=== PATIENT | male | born 1950 | race Caucasian/White ===

== ENCOUNTER 2025-08-30 10:46 | Day surgery (SDC) | payer MEDICARE, SELFPAY ==
[2025-08-30] VITALS (19 sets, daily range): BP systolic 111–168; BP diastolic 66–94; PULSE 60–89; RESP 14–20; TEMP 36.5–37.3; O2SAT 92–98; BMI 32.5
--- NOTE | 2025-08-30 10:15 | CRLHL7_ITS ---
For Patients: As a result of the Cures Act, medical imaging exams and procedure reports are released immediately into your electronic medical record. You may view this report before your referring provider. If you have questions, please contact your health care provider. Indication: TOTAL RIGHT HIP ARTHROPLASTY Technique: AP hip centered pelvis and lateral view right hip Findings/Impression: Hardware from a right total hip arthroplasty is in satisfactory position. Bone alignment is normal. No sign of acute fracture. Postop changes are within normal limits. Dictated by Aden Nolen MD @ 08/30/2025 3:36:20 PM (Electronically Signed)
[2025-08-30] MEDS: SODIUM CHLORIDE 0.9 % (FLUSH) 10 ML SYRINGE IVF ×2 (11:35→15:29)
[2025-08-30] MEDS: LACTATED RINGERS 1000 ML 1,000 ML 100 ML IV ×2 (11:35→13:45)
[2025-08-30] MEDS: OXYCODONE (CR) 10 MG TAB.ER.12H PO (11:48)
[2025-08-30] MEDS: ACETAMINOPHEN 500 MG TABLET 1000 MG PO ×2 (11:48→17:51)
[2025-08-30] MEDS: MIDAZOLAM HCL 1 MG/ML inj IVP (11:50)
--- NOTE | 2025-08-30 11:50 | SUR.PREOP ---
TIME?OUT:?1145 PT/RN/MDA?VERIFICATION?OF?SURGICAL?SITE,?PROCEDURE,?AND?CONSENT OBTAINED?PRIOR?TO?INVASIVE?PROCEDURE.
--- NOTE | 2025-08-30 12:11 | W.PM.H&PU ---
History & Physical Update History & Physical Update H&P Reviewed and patient assessed: No changes noted
--- NOTE | 2025-08-30 12:12 | CRLHL7_ITS ---
For Patients: As a result of the Cures Act, medical imaging exams and procedure reports are released immediately into your electronic medical record. You may view this report before your referring provider. If you have questions, please contact your health care provider. Indication: Hip replacement surgery Technique: AP hip fluoroscopic image. Fluoroscopy time 40.5 seconds. Findings/Impression: Hardware from a right total hip arthroplasty is in satisfactory position. Dictated by Aden Nolen MD @ 08/31/2025 8:45:40 AM (Electronically Signed)
[2025-08-30] MEDS: TRANEXAMIC ACID 100 MG/ML INJ 1000 MG IV (12:25)
--- NOTE | 2025-08-30 13:31 | P.NB_ITS ---
Nerve Block Nerve Block Time Seen by Provider: :45 Date Seen: 08/30/25 Type of block requested by surgeon for post-operative analgesia: CECILIA/LFCN Side: right Time out performed: Yes Verification of patient name: Yes Verification of date of : Yes Site marking: site marked Name of person performing procedure: Travis Continuous monitoring Was continuous monitoring of O2 sat, B/P, cardiac catheterization technician, recorded every 15 minutes?: Yes Procedure Checklist: sterile prep, needles and gloves Ultrasound guided. Images saved: Yes Medications given in 5ml increments after negative aspiration: Ropivicaine %: 0.5 mL: 30 Needle gauge: 20 Precedex (mcg): 25 Patient tolerated procedure well: Yes Additional comments: Needle noted below psoas tendon needle noted adjacent to LFCN Block Charges Block Charge (with Pro Fee): Other Periph Nerve Block Use of Ultrasound Machine for Block: Yes- US Guidance/pain block
--- NOTE | 2025-08-30 13:32 | P.ANES_ITS ---
Anesthesia Charges Start Date/Time Anesthesia Start Date: 08/30/25 Anesthesia Start Time: 12:00 Stop Date/Time Anesthesia Stop Date: 08/30/25 Anesthesia Stop Time: 14:39 Summary Extremes of Age - Over 70 or under 1: MDA Coding CPT Codes CPT Codes: ANESTH HIP ARTHROPLASTY - 93277 ([id number]) P3 - PATIENT W/SEVERE SYS DISEASE, QK - COUNTERINTELLIGENCE AGENT 2-4 CNCRNT ANES PROC, QX - GRIDDLE ATTENDANT SVC W/ MD MED DIRECTION Additional Codes: Summary - Extremes of Age - Over 70 or under 1: MDA ([id number])
--- NOTE | 2025-08-30 13:32 | W.ANESCHARGE ---
Anesthesia Charges Start Date/Time Anesthesia Start Date: 08/30/25 Anesthesia Start Time: 12:00 Stop Date/Time Anesthesia Stop Date: 08/30/25 Anesthesia Stop Time: 14:39 Summary Extremes of Age - Over 70 or under 1: MDA Coding CPT Codes CPT Codes: ANESTH HIP ARTHROPLASTY - 40354 ([id number]) P3 - PATIENT W/SEVERE SYS DISEASE, QK - CAPTION WRITER 2-4 CNCRNT ANES PROC, QX - REGULATORY MANAGER SVC W/ MD MED DIRECTION Additional Codes: Summary - Extremes of Age - Over 70 or under 1: MDA ([id number])
--- NOTE | 2025-08-30 13:43 | P.ORPRC_ITS ---
Procedure Note Date of procedure: 08/30/25 Procedure: PREOPERATIVE DIAGNOSIS: 1. Right hip osteoarthritis, severe, primary POSTOPERATIVE DIAGNOSIS: 1. Right hip osteoarthritis, severe, primary PROCEDURE: 1. Right total hip arthroplasty-anterior approach 2. Intraoperative fluoroscopy interpreted by Devante Sarabia M.D. for intraoperative evaluation of implant positioning as well as leg length and offset evaluation. Fluoroscopy time was 40.5 seconds. SURGEON: Devante Sarabia MD. TECHNICAL ADMINISTRATIVE ASSISTANT: Librado Tabares PA-C; ANNETTE Tyson - Of note, a skilled assistant clinical director was critical for this case to aid in patient positioning, tissue retraction, limb manipulation/positioning, and closure. ANESTHESIA: General endotracheal anesthetic EBL: 300ml IMPLANTS: DePuy J&J uncemented total hip [place] cup size 56, hole eliminator, +4 neutral liner Actis stem, high offset, size 7 +1.5 mm ceramic 36 mm head COMPLICATIONS: None evident INDICATIONS: The patient is a pleasant 75-year-old male who has experienced severe right hip pain and difficulty bearing weight. Workup included x-rays which revealed severe osteoarthrosis in the hip. Given the deformity, the dysfunction, and the pain, as well as the failure of nonoperative management, recommendation was made for surgery. FINDINGS: Full-thickness chondral loss diffusely throughout the femoral head and acetabulum. Osteophytes on the femoral head/neck junction and perimeter of the acetabulum. Large effusion upon entering the joint. DESCRIPTION OF PROCEDURE: Following a thorough discussion of risks, benefits, and alternatives consent was obtained and the right hip was marked. The patient was brought to the operating room and placed supine on the operating table. Induction of anesthesia was undertaken. 2 g IV Ancef and 1 g tranexamic acid was administered within 1 hr of incision preoperatively. Proper time-out was performed identifying proper patient, site, procedure. The operative extremity was prepped and draped in the appropriate sterile fashion using ChloraPrep after the patient was positioned on the [place] table with head in neutral alignment and all bony prominences well padded. C-arm fluoroscopic imaging was utilized to confirm proper pelvis rotation and position, and to get true AP films of both the contralateral left, and the affected right hip. This is for comparison. A longitudinal incision was made starting approximately 1 cm distal to the ASIS, and 2-3 cm lateral. The incision was extended distally aiming toward the fibular head. Sharp incision through skin and bovie cautery through the subcutaneous tissue allowed identification of the TFL fascia. This was sharply divided, and the fascia bluntly released from the muscle fibers as we dissected medial. Upon coming to the medial border, we were able to retract the TFL laterally, and penetrated the deeper fascia and identify the crossing circumflex vessels. These were ligated/cauterized. The rectus was elevated from the capsule, and retractors placed laterally and medially along the femoral neck to help with visualization of the capsule. We then performed an inverted T capsulotomy. The capsule was tagged for later repair. Retractors were placed inside the capsule. The femoral neck was visualized after releasing medially down to the lesser trochanter, along the saddle laterally, and up onto the acetabulum. The femoral neck cut was made in line with our preoperative templating. The head was removed in a single piece, and sized. We turned our attention to acetabular preparation. Initially, the labrum was resected from around the perimeter, the pulvinar was excised, allowing us to visualize the false wall. We started the reaming with a 43 mm reamer. This was medialized down to the true wall. We then enlarged our reamers sequentially up to one size less than the selected cup size. We trialed at the same size and found it to have an excellent fit. The selected cup was then opened, inserted, and impacted in line with the goal of 40? of abduction, and 20-25? of anteversion. This was confirmed on C-arm fluoroscopic imaging to be in the appropriate/goal position. Once the cup was placed we placed a hole eliminator and a liner consistent with preop planning. Attention was turned to the femoral preparation. The limb was extended, externally rotated, and adducted. The posteromedial capsule was released, as retractors were placed allowing excellent access to the proximal femur. Inkevin mccabe a safe deposit box rental clerk was followed by canal finder followed by various broaches. We broached sequentially up to the size noted above, found it to have excellent rotational control, and trialing various heads and necks, revealed that appropriate neck offset, and the above noted head size provided the greatest stability, and cheondoism of length, and offset. C-arm fluoroscopic imaging confirmed position of the stem, as well as leg lengths, which were compared with the pre procedure all fluoroscopic images. Trial implants were removed, the real femoral stem inserted, as was the appropriate head. After reducing, the leg was placed through range of motion and stability was confirmed anterior, posterior, and lateral. A 3 min Betadine soak was then performed, and thorough irrigation with normal saline followed. Closure of the capsule was performed with #1 PDS. Bleeding was confirmed to be controlled at this stage, and the TFL fascia was closed with #0 strata fix. Subcutaneous, and subcuticular closure was performed with 2-0 Stratafix and 4-0 Stratafix, respectively. Dressings were applied, and the patient was awoken from anesthesia and transferred the PACU in stable condition. A skilled assistant clinical director was critical for this case to aid in patient positioning, tissue retraction, acetabular and proximal femoral exposure, limb manipulation/positioning, dislocation/relocation, patient safety, and closure. PLAN: 1. Weight bear as tolerated operative extremity. 2. 23 hr perioperative antibiotics. 3. Ice. 4. PT/OT consults for ambulation assistance/mobility education. 5. Social work consult for discharge planning. 6. DVT prophylaxis with at SCDs and Xarelto x5 days followed by aspirin for a total of 1 month.
--- NOTE | 2025-08-30 14:40 | P.ANES_ITS ---
Anesthesia Charges Start Date/Time Anesthesia Start Date: 08/30/25 Anesthesia Start Time: 12:00 Stop Date/Time Anesthesia Stop Date: 08/30/25 Anesthesia Stop Time: 14:39 Summary Extremes of Age - Over 70 or under 1: CORK MOLDER Coding CPT Codes CPT Codes: ANESTH HIP ARTHROPLASTY - 94580 ([id number]) P3 - PATIENT W/SEVERE SYS DISEASE, QK - SYSTEMS TESTER 2-4 CNCRNT ANES PROC, QX - CORK MOLDER SVC W/ MD MED DIRECTION Additional Codes: Summary - Extremes of Age - Over 70 or under 1: CORK MOLDER ([id number])
--- NOTE | 2025-08-30 14:40 | W.ANESCHARGE ---
Anesthesia Charges Start Date/Time Anesthesia Start Date: 08/30/25 Anesthesia Start Time: 12:00 Stop Date/Time Anesthesia Stop Date: 08/30/25 Anesthesia Stop Time: 14:39 Summary Extremes of Age - Over 70 or under 1: SUPERVISOR GLUING Coding CPT Codes CPT Codes: ANESTH HIP ARTHROPLASTY - 19526 ([id number]) P3 - PATIENT W/SEVERE SYS DISEASE, QK - HOOP MAKER HELPER MACHINE 2-4 CNCRNT ANES PROC, QX - SUPERVISOR GLUING SVC W/ MD MED DIRECTION Additional Codes: Summary - Extremes of Age - Over 70 or under 1: SUPERVISOR GLUING ([id number])
[2025-08-30] MEDS: CEFAZOLIN 2 GM in 0.9 % SODIUM CHLORIDE Mini-bag 100 ML IVPB (17:52)
[2025-08-30] MEDS: SENNOSIDES 1 TAB TABLET 2 TAB PO (21:18)
--- NOTE | 2025-08-31 00:03 | PM.IMCN1 ---
Date of Consult Patient: Other Consult date: 08/30/25 Requesting Physician: Orthopedics Primary Care Provider: Carissa Preston PA-C Consult Narrative Narrative: Clovis Navas is a 75 year old male admitted to the hospital for right total hip arthroplasty. Procedures performed by Dr. Sarabia. No complications. Requests consultation for management of medical problems following surgery. Patient reports generally doing well after surgery. Pain is well controlled. He did have an episode of feeling quite lightheaded when he attempted to stand. His blood pressure was relatively low at that time as well. No syncope. No nausea or chills. He otherwise reports feeling well. He had a preop physical and there were no significant problems identified at that time. He has sleep apnea and has brought his CPAP with him. Review of Systems Narrative: No other health concerns at this time. [facility] Medical History (Updated 08/31/25 @ 00:09 by Tigre Toussaint MD) Obstructive sleep apnea ?G47.33 - Obstructive sleep apnea (adult) (pediatric) (ICD-10) Orthostatic hypotension ?I95.1 - Orthostatic hypotension (ICD-10) Hx of cardiac pacemaker ?Z95.0 - Presence of cardiac pacemaker (ICD-10) Fluctuating blood pressure ?I99.8 - Other disorder of circulatory system (ICD-10) Prostate hypertrophy ?N40.0 - Benign prostatic hyperplasia without lower urinary tract symptoms (ICD-10) Erectile dysfunction ?N52.9 - Male erectile dysfunction, unspecified (ICD-10) Diverticulosis of colon ?K57.30 - Diverticulosis of large intestine without perforation or abscess without bleeding (ICD-10) KELLY (acute kidney injury) ?N17.9 - Acute kidney failure, unspecified (ICD-10) Syncope ?R55 - Syncope and collapse (ICD-10) COVID-19 virus infection ?U07.1 - COVID-19 (ICD-10) Pneumonia ?J18.9 - Pneumonia, unspecified organism (ICD-10) Hyponatremia ?E87.1 - Hypo-osmolality and hyponatremia (ICD-10) Hypercholesterolemia ?E78.00 - Pure hypercholesterolemia, unspecified (ICD-10) Encounter related to worker's compensation claim (02/11/73) ?Z02.6 - Encounter for examination for insurance purposes (ICD-10) Cellulitis ?L03.90 - Cellulitis, unspecified (ICD-10) Arthritis ?M19.90 - Unspecified osteoarthritis, unspecified site (ICD-10) Sleep apnea ?G47.30 - Sleep apnea, unspecified (ICD-10) Hypertension ?I10 - Essential (primary) hypertension (ICD-10) Hyperlipidemia ?E78.5 - Hyperlipidemia, unspecified (ICD-10) Surgical History (Updated 08/31/25 @ 00:08 by Tigre Toussaint MD) S/P total hip arthroplasty ?Z96.649 - Presence of unspecified artificial hip joint (ICD-10) Hx of vasectomy ?Z98.52 - Vasectomy status (ICD-10) Hx of transurethral resection of prostate ?Z98.890 - Other specified postprocedural states (ICD-10) ?Z90.79 - Acquired absence of other genital organ(s) (ICD-10) H/O eye surgery ?Z98.890 - Other specified postprocedural states (ICD-10) History of rectal polypectomy ?Z98.890 - Other specified postprocedural states (ICD-10) ?Z87.19 - Personal history of other diseases of the digestive system (ICD-10) S/P right knee arthroscopy (~1979) ?Z98.890 - Other specified postprocedural states (ICD-10) History of meniscectomy of right knee (~1973) ?Z98.890 - Other specified postprocedural states (ICD-10) H/O: knee surgery (09/29/01) ?Z98.890 - Other specified postprocedural states (ICD-10) S/P arthroscopy of right shoulder (09/26/06) ?Z98.890 - Other specified postprocedural states (ICD-10) 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 They have 2 steps to get in the house and he can live on 1 level. Former smoker. He does not drink alcohol. is healthcare power of disability attorney. Code status is full What is your current living situation?: I presently have a place to live Problems where you live: no known problems Problems where you live details: na In the past 12 months, utilities in danger of being shut off: no In past 12 months, lack of transportation kept you from medical appts, meetings, work, or getting things needed for daily living: no In the past 12 mos, have been you worried that your food would run out before you had money to buy more?: never true In the past 12 mos, the food you bought just didn't last and you didn't have money to buy more?: never true Smoking Status: Former smoker What tobacco products do you use: cigarettes Smoking quit date/years: >15 years ago Do you use any of these nicotine containing products: None Second hand tobacco smoke exposure: No How often do you have a drink containing alcohol: never AUDIT-C Alcohol total score: 0 Non-prescribed substance use: denies use Caffeine: Yes How often does anyone, including family, friends and others, physically hurt you: never How often does anyone, including family, friends and others, insult or talk down to you: never How often does anyone, including family, friends and others, threaten you with harm: never How often does anyone, including family, friends and others, scream or curse at you: never service: No Meds Home Medications and Allergies Home Medications ?Medication ?Instructions ?Recorded ?Confirmed ?Type atorvastatin 10 mg tablet 10 mg PO QPM 04/23/23 08/30/25 History hydrochlorothiazide 12.5 mg tablet 12.5 mg PO Q48H 08/17/25 08/30/25 History acetaminophen 500 mg capsule 500 - 1,000 mg (1 - 2 x 500 mg) PO 08/30/25 Rx Q6H PRN #100 caps amlodipine 10 mg tablet 10 mg PO DAILY 08/30/25 08/30/25 History aspirin 81 mg tablet,delayed 81 mg PO BID #50 tabs 08/30/25 Rx release oxycodone 5 mg tablet 2.5 - 5 mg (0.5 - 1 x 5 mg) PO 08/30/25 Rx Q4-6H PRN pain #42 tabs rivaroxaban 10 mg tablet 10 mg PO DAILY #4 tabs 08/30/25 Rx sennosides 8.6 mg-docusate sodium 1 - 4 tab-cap (1 - 4 x 8.6-50 mg) 08/30/25 Rx 50 mg tablet (Senna-S) PO BID PRN constipation #60 tabs Allergies Allergy/AdvReac Type Severity Reaction Status Date / Time iodine Allergy Severe Swelling Verified 08/30/25 11:40 of Lip/Tongue/Throat shellfish derived Allergy Severe Swelling Verified 08/30/25 11:40 of Lip/Tongue/Throat gadodiamide Allergy Intermediate Hives Verified 08/30/25 11:40 chocolate flavor Allergy Unknown throat Verified 08/30/25 11:40 thickened up Iodinated Contrast Media Allergy Hives Verified 08/30/25 11:40 Exam Narrative: Exam Narrative: He is alert and in no distress. Oropharynx with small airway. Neck is supple without mass or adenopathy. Respirations are clear to auscultation with a few basilar crackles otherwise clear. Breathing is unlabored. Cardiovascular: S1, S2, regular rate and rhythm. Abdomen: Bowel sounds active. Abdomen is soft without tenderness. Hip is without significant swelling bruising or redness or drainage. Feet and ankles with intact pulses sensation and motion. Const: Vital Signs, click to edit/add: Vital Signs - 24 hr 08/30/25 11:30 08/30/25 14:35 08/30/25 14:40 Temperature 98.3 F 98.5 F Pulse Rate 60 60 62 Pulse Rate [Right Pulse Oximeter] Respiratory Rate 16 14 14 Blood Pressure 168/75 H 118/66 112/68 Blood Pressure [Ri ght Arm] Pulse Oximetry 96 96 98 Oxygen Delivery Me thod Nasal Cannula Nasal Cannula Oxygen Flow Rate 4 4 08/30/25 14:45 08/30/25 14:50 08/30/25 14:55 Temperature Pulse Rate 60 62 62 Pulse Rate [Right Pulse Oximeter] Respiratory Rate 18 20 20 Blood Pressure 119/72 112/74 129/71 Blood Pressure [Ri ght Arm] Pulse Oximetry 96 95 96 Oxygen Delivery Me thod Nasal Cannula Nasal Cannula Nasal Cannula Oxygen Flow Rate 4 2 2 08/30/25 15:00 08/30/25 15:27 08/30/25 15:42 Temperature 97.7 F 97.7 F Pulse Rate 60 Pulse Rate [Right Pulse Oximeter] 88 89 Respiratory Rate 20 17 17 Blood Pressure 130/79 Blood Pressure [Ri ght Arm] 114/70 111/72 Pulse Oximetry 96 96 97 Oxygen Delivery Me thod Nasal Cannula Nasal Cannula Nasal Cannula Oxygen Flow Rate 2 2 2 08/30/25 15:57 08/30/25 16:12 08/30/25 16:42 Temperature 98.1 F 97.9 F 98.3 F Pulse Rate Pulse Rate [Right Pulse Oximeter] 81 63 65 Respiratory Rate 16 16 16 Blood Pressure Blood Pressure [Ri ght Arm] 121/71 126/78 122/76 Pulse Oximetry 97 98 97 Oxygen Delivery Me thod Nasal Cannula Nasal Cannula Room Air Oxygen Flow Rate 2 2 08/30/25 17:12 08/30/25 18:12 08/30/25 19:40 Temperature 98.3 F 98.1 F Pulse Rate Pulse Rate [Right Pulse Oximeter] 64 66 70 Respiratory Rate 17 17 Blood Pressure Blood Pressure [Ri ght Arm] 120/76 122/75 127/71 Pulse Oximetry 96 94 95 Oxygen Delivery Me thod Room Air Room Air Room Air Oxygen Flow Rate 08/30/25 20:15 08/30/25 21:12 Temperature 98.2 F 98.3 F Pulse Rate Pulse Rate [Right Pulse Oximeter] 74 69 Respiratory Rate 18 18 Blood Pressure Blood Pressure [Ri ght Arm] 160/94 H 137/82 Pulse Oximetry 92 94 Oxygen Delivery Me thod Room Air Room Air Oxygen Flow Rate Documenting provider has reviewed patient's vital signs: yes Assessment and Plan Assessment and plan (1) S/P total hip arthroplasty: Problem comment: 08/31/2025 Dr. Sarabia Status: Acute (2) Orthostatic hypotension: Problem comment: Hold blood pressure medicines pending assessment with ambulation tomorrow Status: Acute (3) Hypertension: Problem comment: Hold blood pressure medicines pending assessment of symptoms with ambulation tomorrow Status: Acute (4) Obstructive sleep apnea: Problem comment: Home CPAP. Status: Acute Plan 75-year-old male admitted to the hospital for right total hip arthroplasty. Doing well except for orthostatic hypotension. Hold blood pressure medicines pending his clinical course. Anticipate discharge to home tomorrow if tolerating activity. Total Time Spent Total Time Spent: Total time spent today is 40 minutes in reviewing outside records coordination of care and discussing with patient ongoing management of hip arthroplasty
[2025-08-31] MEDS: ACETAMINOPHEN 500 MG TABLET 1000 MG PO ×2 (00:17→06:28)
[2025-08-31] MEDS: CALCIUM CARBONATE 500 MG CHEW PO (00:19)
[2025-08-31] MEDS: CEFAZOLIN 2 GM in 0.9 % SODIUM CHLORIDE Mini-bag 100 ML IVPB (02:27)
[2025-08-31 03:55] VITALS: BP 116/72; PULSE 69; RESP 18; TEMP 37.2; O2SAT 90
[2025-08-31 06:29] LABS: Hematocrit* 35.1 % (37.0-53.0); Hemoglobin* 12.1 gm/dL (13.5-17.5); Immature Granulocytes Pct Auto 0.7 %; Mean Corpuscular HGB Conc 35 gm/dL (32-36); Mean Corpuscular Hemoglobin 33 pg (26-34); Mean Corpuscular Volume 95 fL (80-100); RDW Coefficient of Variation % 12.7 % (11.5-15.5); Red Blood Count* 3.71 m/uL (4.30-5.90); White Blood Count* 13.03 K/uL (4.50-11.00)
[2025-08-31 06:31] LABS: Chloride* 100 mmol/L (96-114)
[2025-08-31 06:32] LABS: Immature Granulocytes Abs Auto 0.10 K/uL (0.00-0.30); Lymphocytes Absolute Auto 1.20 K/uL (0.90-2.90); Potassium* 4.3 mmol/L (3.6-5.1); Slide Review Reflex No; Sodium* 128 mmol/L (135-149)
[2025-08-31 06:35] LABS: Anion Gap 6 mEq/L (7-15); Blood Urea Nitrogen* 23 mg/dL (7-30); Calcium* 8.3 mg/dL (8.4-10.6); Carbon Dioxide* 22 mmol/L (20-32); Creatinine* 1.0 mg/dL (0.5-1.5); Est. Creatinine Clearance* 64.89; Estimated Glomerular Filt Rate 78 ml/min; Glucose* 149 mg/dL (60-115)
--- NOTE | 2025-08-31 06:56 | PC.NURSE ---
Pt?pleasant, alert, oriented and vitally stable.?Pain rated 5-7/10 with movement, though 1-3/10 at rest. PRN medication provided before bathroom attempt, pt stated pain being?more?tolerable.?Home CPAP in use. Dressing C/D/I. CMS intact.?SBA.?Pt in bed, appears to be resting, call light within reach.??
[2025-08-31 07:00] VITALS: BP 123/67; PULSE 89; RESP 18; TEMP 37.4; O2SAT 91
[2025-08-31] MEDS: SENNOSIDES 1 TAB TABLET 2 TAB PO (08:52)
[2025-08-31] MEDS: RIVAROXABAN 10 MG TABLET PO (08:52)
--- NOTE | 2025-08-31 12:07 | PM.ORPN ---
Subjective Subjective Date Seen: 08/31/25 Principal diagnosis: Status postop day 1, right total hip arthroplasty - anterior approach Interval history: Patient reports doing well. No acute events over night. Pain managed with scheduled and PRN medications, ice. DVT prophylaxis: Rivaroxaban, SCDs, walking. Denies fevers, chills, aches, N/V, CP, SOB/DINH, or lightheadedness. Passing flatus. Ortho Exam Narrative Exam Narrative: -Patient appears comfortable in bed; no apparent acute distress -Alert and oriented times 3 -Operative hip swollen; soft tissues supple; no obvious erythema. Ecchymosis minimal. Warmth appropriate -Surgical dressing clean, dry, intact; no obvious drainage, no erythematous streaking peripheral to the bandage -Bilateral calves soft and supple; no significant swelling, edema, tenderness, erythema, discoloration, warmth, or palpable cords -2+ DP/PT pulses, intact dermatomes and myotomes distally (5/5 strength). No numbness about the lateral femoral cutaneous nerve distribution. Const Vital Signs, click to edit/add: Vital Signs - 24 hr 08/30/25 14:35 08/30/25 14:40 08/30/25 14:45 Temperature 98.5 F Pulse Rate 60 62 60 Pulse Rate [Right Pulse Oximeter] Respiratory Rate 14 14 18 Blood Pressure 118/66 112/68 119/72 Blood Pressure [Right Arm] Pulse Oximetry 96 98 96 Oxygen Delivery Method Nasal Cannula Nasal Cannula Nasal Cannula Oxygen Flow Rate 4 4 4 08/30/25 14:50 08/30/25 14:55 08/30/25 15:00 Temperature Pulse Rate 62 62 60 Pulse Rate [Right Pulse Oximeter] Respiratory Rate 20 20 20 Blood Pressure 112/74 129/71 130/79 Blood Pressure [Right Arm] Pulse Oximetry 95 96 96 Oxygen Delivery Method Nasal Cannula Nasal Cannula Nasal Cannula Oxygen Flow Rate 2 2 2 08/30/25 15:27 08/30/25 15:42 08/30/25 15:57 Temperature 97.7 F 97.7 F 98.1 F Pulse Rate Pulse Rate [Right Pulse Oximeter] 88 89 81 Respiratory Rate 17 17 16 Blood Pressure Blood Pressure [Right Arm] 114/70 111/72 121/71 Pulse Oximetry 96 97 97 Oxygen Delivery Method Nasal Cannula Nasal Cannula Nasal Cannula Oxygen Flow Rate 2 2 2 08/30/25 16:12 08/30/25 16:42 08/30/25 17:12 Temperature 97.9 F 98.3 F 98.3 F Pulse Rate Pulse Rate [Right Pulse Oximeter] 63 65 64 Respiratory Rate 16 16 17 Blood Pressure Blood Pressure [Right Arm] 126/78 122/76 120/76 Pulse Oximetry 98 97 96 Oxygen Delivery Method Nasal Cannula Room Air Room Air Oxygen Flow Rate 2 08/30/25 18:12 08/30/25 19:40 08/30/25 20:15 Temperature 98.1 F 98.2 F Pulse Rate Pulse Rate [Right Pulse Oximeter] 66 70 74 Respiratory Rate 17 18 Blood Pressure Blood Pressure [Right Arm] 122/75 127/71 160/94 H Pulse Oximetry 94 95 92 Oxygen Delivery Method Room Air Room Air Room Air Oxygen Flow Rate 08/30/25 21:12 08/30/25 22:15 08/30/25 23:00 Temperature 98.3 F 99.1 F Pulse Rate Pulse Rate [Right Pulse Oximeter] 69 77 Respiratory Rate 18 20 Blood Pressure Blood Pressure [Right Arm] 137/82 117/73 Pulse Oximetry 94 94 94 Oxygen Delivery Method Room Air Room Air Room Air Oxygen Flow Rate 08/30/25 23:00 08/31/25 03:55 08/31/25 07:00 Temperature 98.9 F 99.3 F Pulse Rate Pulse Rate [Right Pulse Oximeter] 77 69 89 Respiratory Rate 20 18 18 Blood Pressure Blood Pressure [Right Arm] 116/72 123/67 Pulse Oximetry 90 91 Oxygen Delivery Method Room Air Room Air Oxygen Flow Rate 08/31/25 07:00 08/31/25 07:00 Temperature Pulse Rate Pulse Rate [Right Pulse Oximeter] 89 Respiratory Rate 18 18 Blood Pressure Blood Pressure [Right Arm] Pulse Oximetry 91 Oxygen Delivery Method Room Air Oxygen Flow Rate 2 Assessment and Plan Assessment and plan (1) S/P total hip arthroplasty: Problem details: 08/31/2025 Dr. Sarabia Status: Acute (2) Orthostatic hypotension: Problem details: Hold blood pressure medicines pending assessment with ambulation tomorrow Status: Acute (3) Hypertension: Problem details: Hold blood pressure medicines pending assessment of symptoms with ambulation tomorrow Status: Acute (4) Obstructive sleep apnea: Problem details: Home CPAP. Status: Acute Plan - Complete 23 hour perioperative antibiotics. - PT/OT consult for education and assistance. - Social work consult for discharge planning - Prescribed analgesics as needed - DVT prophylaxis: Rivaroxaban for 5 days, followed by 81 mg aspirin by mouth twice daily, walking, and SCDs - Anticipation is for discharge to home with family/friends today 08/31/2025 if the patient remains medically stable, pain is controlled, and they are safe with mobilization.
== END 2025-08-31 11:15 | disposition home or self-care (01) ==
LOC: OR 10:51 → MEDSURG 10:52
PROVIDERS: Family Medicine; PCP Physician Assistant; Visit Provider Orthopaedic Surgery Sports Medicine
PROC: (CPT 27130; principal; 2025-08-30 12:45)
DX: M16.11 Unilateral primary osteoarthritis, right hip (principal); G89.18 Other acute postprocedural pain; I95.1 Orthostatic hypotension; R42 Dizziness and giddiness; G47.33 Obstructive sleep apnea (adult) (pediatric); Z99.89 Dependence on other enabling machines and devices; Z95.0 Presence of cardiac pacemaker; I10 Essential (primary) hypertension; E78.5 Hyperlipidemia, unspecified
CPT/HCPCS: 27130; 01214; 36415; 64450; 73501; 76000; 76942; 80048; 85025; 86850; 86900; 86901; 97110; 97116; 97161; 97165; 97535; 99100; A9270; C1776; J0330; J0665; J0690; J1100; J1171; J2250; J2405; J3010; J3475; J3490; J7120